=== PATIENT | male | born 2000 | race Caucasian/White ===

== ENCOUNTER 2019-01-29 16:37 | Emergency (ER) | payer OTHER ==
[2019-01-29 16:48] VITALS: BP 128/79; PULSE 82
--- NOTE | 2019-01-29 18:29 | EDM.PDOC ---
Scribed by More Robison 01/29/19 [id number] for Alina Erwin NP ED HPI GENERAL MEDICAL PROBLEM - General Chief Complaint: Upper Extremity Injury/Pain Stated Complaint: FELL ON RIGHT ARM AND LEFT ANKLE HURTS Time Seen by Provider: 01/29/19 17:05 Source of Information: Reports: Patient, RN, RN Notes Reviewed History Limitations: Reports: No Limitations - History of Present Illness INITIAL COMMENTS - FREE TEXT/NARRATIVE: Patient presents to ER with complaint of right arm pain and left ankle pain. Patient states he tripped over a suitcase, rolling the left ankle and trying to catch himself with right arm. Complains of pain in right shoulder, right upper arm and right wrist. States hit his head but did not get knocked out. Onset: Today Duration: Constant Location: Reports: Upper Extremity, Right Quality: Reports: Ache Severity: Moderate Improves with: Reports: None Worsens with: Reports: None Associated Symptoms: Reports: No Other Symptoms right arm Pain Score (Numeric/FACES): 7 - Related Data Allergies Allergy/AdvReac Type Severity Reaction Status Date / Time No Known Allergies Allergy Verified 01/29/19 16:54 Home Meds: Home Meds . [No Known Home Meds] 09/25/15 [History] Past Medical History - Past Health History Medical/Surgical History: Denies Medical/Surgical History - Infectious Disease History Infectious Disease History: Reports: Chicken Pox Social & Family History - Family History Family Medical History: Noncontributory - Tobacco Use Smoking Status *Q: Former Smoker Used Tobacco, but Quit: Yes Month/Year Tobacco Last Used: 11/2018 Second Hand Smoke Exposure: No - Caffeine Use Caffeine Use: Reports: Tea - Recreational Drug Use Recreational Drug Use: Yes Recreational Drug Type: Reports: Marijuana/Hashish Recreational Drug Use Frequency: Socially Review of Systems - Review of Systems Review Of Systems: ROS reveals no pertinent complaints other than HPI. ED EXAM, GENERAL - Physical Exam Exam: See Below Exam Limited By: No Limitations General Appearance: Alert, WD/WN, No Apparent Distress Eye Exam: Bilateral Eye: EOMI, Normal Inspection, PERRL Ears: Normal External Exam, Normal Canal, Hearing Grossly Normal, Normal TMs Nose: Normal Inspection, Normal Mucosa, No Blood Throat/Mouth: Normal Inspection, Normal Lips, Normal Teeth, Normal Gums, Normal Oropharynx, Normal Voice, No Airway Compromise Head: Atraumatic, Normocephalic Neck: Normal Inspection, Supple, Non-Tender, Full Range of Motion Respiratory/Chest: No Respiratory Distress, Lungs Clear, Normal Breath Sounds, No Accessory Muscle Use, Chest Non-Tender Cardiovascular: Normal Peripheral Pulses, Regular Rate, Rhythm, No Edema, No Gallop, No JVD, No Murmur, No Rub GI/Abdominal: Normal Bowel Sounds, Soft, Non-Tender, No Organomegaly, No Distention, No Abnormal Bruit, No Mass (Male) Exam: Deferred Rectal (Males) Exam: Deferred Back Exam: Normal Inspection Extremities: Other (decreased range of motion right shoulder, right elbow and right wrist. No swelling.) Neurological: Alert, Oriented, CN II-XII Intact, Normal Cognition, Normal Gait, Normal Reflexes, No Motor/Sensory Deficits Psychiatric: Flat Affect Skin Exam: Warm, Dry, Intact, Normal Color, No Rash Lymphatic: No Adenopathy Course - Vital Signs Last Recorded V/S: Last Vital Signs Temp 96.5 F 01/29/19 16:46 Pulse 82 01/29/19 16:46 Resp 20 01/29/19 16:46 BP 128/79 01/29/19 16:46 Pulse Ox 98 01/29/19 16:46 - Radiology Interpretation Free Text/Narrative:: Right shoulder xray: FINDINGS: Bones/joints: No acute fracture or dislocation. Prominent spurring and loose bodies along the inferior margin of the mid to distal right clavicle. Largest bony component is contiguous with the clavicle and is measuring 1.6 cm. Soft tissues: Normal. IMPRESSION: No acute osseous process. Possible heterotopic ossification along the inferior margin of mid to distal right clavicle. Thank you for allowing us to participate in the care of your patient. Dictated and Authenticated by: Yan Pereira MD 01/29/2019 5:58 PM Central Time ([place] & [place]) Right forearm xray: FINDINGS: Bones/joints: No acute fracture. Soft tissues: Unremarkable. IMPRESSION: No acute osseous process. Thank you for allowing us to participate in the care of your patient. Dictated and Authenticated by: Yan Pereira MD 01/29/2019 5:56 PM Central Time ([place] & [place]) See rad report Departure - Departure Time of Disposition: 18:08 Disposition: Home, Self-Care 01 Condition: Fair Clinical Impression: Sprain of shoulder Qualifiers: Encounter type: initial encounter Shoulder sprain type: unspecified sprain Laterality: right Qualified Code(s): S43.401A - Unspecified sprain of right shoulder joint, initial encounter Sprain of wrist Qualifiers: Encounter type: initial encounter Laterality: right Qualified Code(s): S63.501A - Unspecified sprain of right wrist, initial encounter - Discharge Information *PRESCRIPTION DRUG MONITORING PROGRAM REVIEWED*: No *COPY OF PRESCRIPTION DRUG MONITORING REPORT IN PATIENT NATHAN: No Instructions: Wrist Sprain, Adult, Shoulder Sprain, How to Use a Sling, Easy-to -Read Forms: ED Department Discharge Additional Instructions: Ice the areas as tolerated Rest, elevate as possible May use Tylenol and/or Ibuprofen as directed for pain Follow up with your primary care provider if no improvement I have read and agree with the documentation that has been completed regarding this visit. By signing this record, I attest that the documentation was completed in my physical presence and is an accurate record of the encounter.
== END 2019-01-29 18:18 | disposition home or self-care (01) ==
LOC: DL.ED 16:37
DX: S43.401A Unspecified sprain of right shoulder joint, initial encounter (principal); S63.501A Unspecified sprain of right wrist, initial encounter; Z87.891 Personal history of nicotine dependence; W01.0XXA Fall on same level from slipping, tripping and stumbling without subsequent striking against object, initial encounter
CPT/HCPCS: 73030-RT; 73090-RT; 99283-25

== ENCOUNTER 2019-06-08 11:00 | Emergency (ER) | payer MEDICAID, OTHER ==
[2019-06-08] MEDS ORDERED: Ondansetron 4 MG/2 ML SDV ONE (11:39)
[2019-06-08] MEDS ORDERED: Ondansetron 4 MG/2 ML SDV IVPUSH ONE (11:47)
[2019-06-08 11:58] VITALS: BP 151/83; PULSE 66
[2019-06-08] MEDS ORDERED: Sodium Chloride 0.9% 1,000 ML IV SCH (12:00)
[2019-06-08] MEDS ORDERED: Sodium Chloride 0.9% 10 ML Syringe FLUSH PRN (12:03)
[2019-06-08] MEDS ORDERED: Famotidine 20 MG/2 ML SDV IVPUSH ONE (12:04)
[2019-06-08] MEDS ORDERED: MVI, Adult with Vitamin K 10 ML, Thiamine 100 MG, Folic Acid 1 MG in Lactated Ringers 1... IV ONE ×4 (12:20)
[2019-06-08] MEDS ORDERED: Promethazine 25 MG/ML SDV IM ONE (12:20)
[2019-06-08 12:58] LABS: CHLORIDE,CL 105 mmol/L (101-111); SODIUM,NA 141 mmol/L (135-145)
[2019-06-08] MEDS ORDERED: Potassium Chloride 10 MEQ in Premix Bag 1 BAG IV ONE (13:03)
[2019-06-08] MEDS ORDERED: Lidocaine 1% 30 ML SDV INJECT ONE (13:05)
--- NOTE | 2019-06-08 13:35 | EDM.PDOC ---
ED HPI GENERAL MEDICAL PROBLEM - General Chief Complaint: Abdominal Pain Stated Complaint: VOMITING FEVER Time Seen by Provider: 06/08/19 13:30 Source of Information: Reports: Patient, RN, RN Notes Reviewed History Limitations: Reports: No Limitations - History of Present Illness INITIAL COMMENTS - FREE TEXT/NARRATIVE: Pt presents to ER from home with c/o that he drank too much alcohol last night ( last drank at 0100HRS this morning), and woke this morning with a terrible hangover with nausea, vomiting, and epigastric abdominal pain. He tried sipping soda pop this morning but he just vomits it back up. He admits to marijuana use also. He denies diarrhea or urinary symptoms. He states that he was just "partying" and is not a daily alcohol drinker. Onset: Today Duration: Constant Location: Reports: Abdomen Quality: Reports: Ache Severity: Severe Improves with: Reports: None Worsens with: Reports: None Associated Symptoms: Reports: No Other Symptoms - Related Data Allergies Allergy/AdvReac Type Severity Reaction Status Date / Time No Known Allergies Allergy Verified 06/08/19 11:18 Home Meds: Home Meds . [No Known Home Meds] 09/25/15 [History] Past Medical History - Past Health History Medical/Surgical History: Denies Medical/Surgical History - Infectious Disease History Infectious Disease History: Reports: Chicken Pox Social & Family History - Family History Family Medical History: Noncontributory - Tobacco Use Smoking Status *Q: Never Smoker Second Hand Smoke Exposure: Yes - Caffeine Use Caffeine Use: Reports: Soda - Alcohol Use Alcohol Use History: Yes Alcohol Use Frequency: Binges - Recreational Drug Use Recreational Drug Use: Yes Recreational Drug Type: Reports: Marijuana/Hashish Recreational Drug Use Frequency: Weekly - Living Situation & Occupation Living situation: Reports: with Family Occupation: Employed ED ROS GENERAL - Review of Systems Review Of Systems: Comprehensive ROS is negative, except as noted in HPI. ED EXAM, GI/ABD - Physical Exam Exam: See Below Exam Limited By: No Limitations General Appearance: Alert, WD/WN, Anxious, Active Emesis Eyes: Bilateral: EOMI Ears: Normal External Exam Nose: Normal Inspection, Normal Mucosa, No Blood Throat/Mouth: Normal Inspection, Normal Lips, Normal Teeth, Normal Gums, Normal Oropharynx, Normal Voice, No Airway Compromise Head: Atraumatic, Normocephalic Neck: Normal Inspection, Supple, Non-Tender, Full Range of Motion Respiratory/Chest: No Respiratory Distress, Lungs Clear, Normal Breath Sounds, No Accessory Muscle Use, Chest Non-Tender Cardiovascular: Normal Peripheral Pulses, Regular Rate, Rhythm, No Edema, No Gallop, No JVD, No Murmur, No Rub GI/Abdominal Exam: Normal Bowel Sounds, Soft, No Organomegaly, No Distention, No Abnormal Bruit, No Mass, Pelvis Stable, Tender (Epigastric) Back Exam: Normal Inspection Extremities: Normal Inspection, Normal Range of Motion, Non-Tender, Normal Capillary Refill, No Pedal Edema Neurological: Alert, Oriented, CN II-XII Intact, Normal Cognition, No Motor/ Sensory Deficits Psychiatric: Anxious, Flat Affect Skin Exam: Warm, Dry, Intact, Petechiae (periorbital, face, and forehead secondary to forceful vomiting) Course - Vital Signs Last Recorded V/S: Last Vital Signs Temp 97.6 F 06/08/19 11:14 Pulse 66 06/08/19 11:14 Resp 22 H 06/08/19 11:14 BP 151/83 H 06/08/19 11:14 Pulse Ox 100 06/08/19 11:14 - Orders/Labs/Meds Orders: Active Orders 24 hr Category Date Time Status Peripheral IV Care [RC] . DIRECTED Care 06/08/19 12:04 Active DRUG SCREEN URINE BIORAD [URCHEM] Stat Lab 06/08/19 12:20 Ordered UA RFX CLARI AND CULT IF INDIC [URIN] Stat Lab 06/08/19 12:21 Ordered Potassium Chloride [KCl 10 MEQ in Water 100 ML] 10 meq Med 06/08/19 13:03 Active Premix Bag 1 bag IV ONETIME Sodium Chloride 0.9% [Normal Saline] 1,000 ml Med 06/08/19 12:00 Active IV ASDIRECTED Sodium Chloride 0.9% [Saline Flush] Med 06/08/19 12:03 Active 10 ml FLUSH ASDIRECTED PRN Peripheral IV Insertion Adult [OM.PC] Stat Oth 06/08/19 12:03 Ordered Medication Orders Sodium Chloride (Normal Saline) 1,000 mls @ 999 mls/hr IV ASDIRECTED [facility] Last Admin: 06/08/19 11:41 Dose: 999 mls/hr Potassium Chloride 10 meq/ (Premix) 100 mls @ 100 mls/hr IV ONETIME ONE Stop: 06/08/19 14:02 Sodium Chloride (Saline Flush) 10 ml FLUSH ASDIRECTED PRN PRN Reason: Keep Vein Open Last Admin: 06/08/19 11:35 Dose: 10 ml Labs: Laboratory Tests 06/08/19 06/08/19 Range/Units 11:35 11:35 WBC 12.0 H (5.0-10.0) 10^3/uL RBC 5.84 (4.6-6.2) 10^6/uL Hgb 17.8 (14.0-18.0) g/dL Hct 48.4 (40.0-54.0) % MCV 82.9 (80-100) fL MCH 30.5 (27.0-34.0) pg MCHC 36.8 H (33.0-35.0) g/dL Plt Count 362 (150-450) 10^3/uL Neut % (Auto) 75.6 H (42.2-75.2) % Lymph % (Auto) 17.8 L (20.5-50.1) % [place] % (Auto) 6.4 (2-8) % Eos % (Auto) 0.0 L (1.0-3.0) % Baso % (Auto) 0.2 (0.0-1.0) % Sodium 141 (135-145) mmol/L Potassium 3.0 L (3.6-5.0) mmol/L Chloride 105 (101-111) mmol/L Carbon Dioxide 19.0 L (21.0-31.0) mmol/L Anion Gap 20.0 BUN 11 (7-18) mg/dL Creatinine 0.8 (0.6-1.3) mg/dL Est Cr Clr Drug Dosing 165.07 mL/min Estimated GFR (MDRD) > 60 BUN/Creatinine Ratio 13.75 Glucose 159 H (74-105) mg/dL Calcium 10.2 (8.4-10.2) mg/dl Total Bilirubin 1.1 H (0.2-1.0) mg/dL AST 39 (10-42) IU/L ALT 65 H (10-60) IU/L Alkaline Phosphatase 58 (42-121) IU/L Total Protein 8.7 H (6.7-8.2) g/dl Albumin 5.5 (3.2-5.5) g/dl Globulin 3.2 Albumin/Globulin Ratio 1.72 Amylase 63 (28-100) U/L Lipase 28 (22-51) U/L Ethyl Alcohol 19 mg/dL Meds: Medications Generic Name Dose Route Start Last Admin Trade Name Freq PRN Reason Stop Dose Admin Sodium Chloride 1,000 mls @ 999 mls/hr 06/08/19 12:00 06/08/19 11:41 Normal Saline IV 999 mls/hr ASDIRECTED RADHA Administration Potassium Chloride 10 meq/ 100 mls @ 100 mls/hr 06/08/19 13:03 Premix IV 06/08/19 14:02 ONETIME ONE Sodium Chloride 10 ml 06/08/19 12:03 06/08/19 11:35 Saline Flush FLUSH 10 ml ASDIRECTED PRN Administration Keep Vein Open Discontinued Medications Generic Name Dose Route Start Last Admin Trade Name Freq PRN Reason Stop Dose Admin Famotidine 20 mg 06/08/19 12:04 06/08/19 12:08 Pepcid IVPUSH 06/08/19 12:05 20 mg ONETIME ONE Administration Multivitamins/Minerals 10 ml/ 1,011.2 mls @ 999 mls/hr 06/08/19 12:20 12:51 Thiamine HCl 100 mg/ Folic IV 06/08/19 13:20 999 mls/hr Acid 1 mg/ Lactated Ringer's .BOLUS ONE Administration Lidocaine HCl 1 ml 06/08/19 13:05 Xylocaine-Mpf 1% INJECT 06/08/19 13:06 ONETIME ONE Ondansetron HCl Confirm 06/08/19 11:39 06/08/19 11:49 Zofran Administered 06/08/19 11:40 Not Given Dose 4 mg .ROUTE .STK-MED ONE Ondansetron HCl 4 mg 06/08/19 11:47 06/08/19 11:49 Zofran IVPUSH 06/08/19 11:48 4 mg ONETIME ONE Administration Promethazine HCl 50 mg 06/08/19 12:20 06/08/19 12:27 Phenergan IM 06/08/19 12:21 50 mg ONETIME ONE Administration Departure - Departure Time of Disposition: 14:00 Disposition: Home, Self-Care 01 Condition: Fair Clinical Impression: Alcoholic gastritis Qualifiers: Chronicity: acute Gastritis bleeding: without bleeding Qualified Code(s): K29.20 - Alcoholic gastritis without bleeding Alcohol intoxication Qualifiers: Complication of substance-induced condition: uncomplicated Qualified Code(s): F10.920 - Alcohol use, unspecified with intoxication, uncomplicated - Discharge Information *PRESCRIPTION DRUG MONITORING PROGRAM REVIEWED*: Not Applicable *COPY OF PRESCRIPTION DRUG MONITORING REPORT IN PATIENT NATHAN: Not Applicable Instructions: Nausea and Vomiting, Adult, [id number], Alcohol Intoxication, Alcohol Use Disorder, Gastritis, Adult, [id number] Additional Instructions: Rx: Zofran 4mg Rx: Pepcid 20mg Abstain from alcohol and marijuana. Follow up in clinic if needed. Sepsis Event Note - Evaluation Sepsis Screening Result: No Definite Risk - Focused Exam Vital Signs: Vital Signs Temp Pulse Resp BP Pulse Ox 06/08/19 11:14 97.6 F 66 22 H 151/83 H 100 Date Exam was Performed: 06/08/19 Time Exam was Performed: 13:30 - My Orders Last 24 Hours: My Active Orders 06/08/19 12:00 Sodium Chloride 0.9% [Normal Saline] 1,000 ml IV ASDIRECTED 06/08/19 12:03 Sodium Chloride 0.9% [Saline Flush] 10 ml FLUSH ASDIRECTED PRN Peripheral IV Insertion Adult [OM.PC] Stat 06/08/19 12:04 Peripheral IV Care [RC] . DIRECTED 06/08/19 12:20 DRUG SCREEN URINE BIORAD [URCHEM] Stat 06/08/19 12:21 UA RFX CLARI AND CULT IF INDIC [URIN] Stat 06/08/19 13:03 Potassium Chloride [KCl 10 MEQ in Water 100 ML] 10 meq Premix Bag 1 bag IV ONETIME - Assessment/Plan Last 24 Hours: My Active Orders 06/08/19 12:00 Sodium Chloride 0.9% [Normal Saline] 1,000 ml IV ASDIRECTED 06/08/19 12:03 Sodium Chloride 0.9% [Saline Flush] 10 ml FLUSH ASDIRECTED PRN Peripheral IV Insertion Adult [OM.PC] Stat 06/08/19 12:04 Peripheral IV Care [RC] . DIRECTED 06/08/19 12:20 DRUG SCREEN URINE BIORAD [URCHEM] Stat 06/08/19 12:21 UA RFX CLARI AND CULT IF INDIC [URIN] Stat 06/08/19 13:03 Potassium Chloride [KCl 10 MEQ in Water 100 ML] 10 meq Premix Bag 1 bag IV ONETIME
== END 2019-06-08 15:41 | disposition home or self-care (01) ==
LOC: DL.ED 11:00
DX: K29.20 Alcoholic gastritis without bleeding (principal); F10.920 Alcohol use, unspecified with intoxication, uncomplicated; Y90.0 Blood alcohol level of less than 20 mg/100 ml
CPT/HCPCS: 36415; 80053; 80320; 82150; 83690; 85025; 96361; 96365; 96372; 96375; 99284; J2001; J2405; J2550; J3411; J3480; J3490; J7030; J7120; G0480